=== PATIENT | male | born 1995 | race Caucasian/White ===

== ENCOUNTER 2018-06-10 01:13 | Emergency (ER) | payer OTHER ==
[2018-06-10 02:59] VITALS: BP 140/71
[2018-06-10] MEDS ORDERED: Sodium Chloride 0.9% 1,000 ML IV SCH (03:15)
--- NOTE | 2018-06-10 03:21 | EDM.PDOC ---
ED HPI GENERAL MEDICAL PROBLEM - General Chief Complaint: Upper Extremity Injury/Pain Stated Complaint: ARM PAIN Time Seen by Provider: 06/10/18 03:08 Source of Information: Reports: Patient History Limitations: Reports: No Limitations - History of Present Illness INITIAL COMMENTS - FREE TEXT/NARRATIVE: This is a 22-year-old male. He states that he awoke with pain in his right shoulder and his shoulder was dislocated. He states it dislocates fairly easily and he noted he had a deformity and it felt like it was dislocated so he comes to the ER. He says his dislocated it several times in the past. He does have an empty socket when I look at the right shoulder suggesting it is dislocated. We will get an x-ray and then it back into place after giving him some medications. Right Shoulder Pain Score (Numeric/FACES): 4 - Related Data Allergies Allergy/AdvReac Type Severity Reaction Status Date / Time No Known Allergies Allergy Verified 06/10/18 02:57 Home Meds: Home Meds . [No Known Home Meds] 06/10/18 [History] Past Medical History - Past Surgical History Musculoskeletal Surgical History: Reports: Shoulder Surgery Social & Family History - Tobacco Use Smoking Status *Q: Never Smoker - Caffeine Use Caffeine Use: Reports: None - Recreational Drug Use Recreational Drug Use: No Review of Systems - Review of Systems Review Of Systems: See Below Constitutional: Denies: Chills, Fever Eyes: Reports: No Symptoms Ears: Reports: No Symptoms Nose: Reports: No Symptoms Mouth/Throat: Reports: No Symptoms Respiratory: Reports: No Symptoms Cardiovascular: Reports: No Symptoms GI/Abdominal: Reports: No Symptoms Genitourinary: Reports: No Symptoms Musculoskeletal: Reports: Shoulder Pain Skin: Reports: No Symptoms Neurological: Reports: No Symptoms Psychiatric: Reports: No Symptoms ED EXAM, GENERAL - Physical Exam Exam: See Below Exam Limited By: No Limitations General Appearance: Alert, WD/WN, Mild Distress Eye Exam: Bilateral Eye: Normal Inspection Ears: Normal External Exam Nose: Normal Inspection Throat/Mouth: Normal Inspection, Normal Lips, Normal Voice, No Airway Compromise Head: Normocephalic Neck: Supple Respiratory/Chest: No Respiratory Distress, Lungs Clear Cardiovascular: Regular Rate, Rhythm, No Murmur GI/Abdominal: Soft Back Exam: Normal Inspection, Full Range of Motion Extremities: Other (The socket of the right shoulder is empty the humeral head appears to be inferior anterior.) Neurological: Alert, Oriented, Other (Sensation and movement of his hand wrist and fingers appears to be intact) Psychiatric: Normal Affect, Normal Mood Skin Exam: Warm, Dry ED TRAUMA EXTREMITY PROCEDURES - Joint Reduction Site: Shoulder (R) Sedation: Conscious Sedation Pre-Procedure NV Status: Normal Post-Procedure NV Status: Normal Technique: Traction/Counter Traction Number of Attempts: 1 Post-Reduction Imaging: Completely Reduced Joint Reduction Complications: No Course - Vital Signs Last Recorded V/S: Last Vital Signs Temp 97.2 F 06/10/18 02:55 Pulse 72 06/10/18 02:55 Resp 16 06/10/18 02:55 BP 140/71 06/10/18 02:55 Pulse Ox 97 06/10/18 02:55 - Orders/Labs/Meds Orders: Active Orders 24 hr Category Date Time Status Shoulder 1V Rt [CR] Stat Exams 06/10/18 03:47 Taken Shoulder Comp Rt [CR] Stat Exams 06/10/18 03:12 Taken Sodium Chloride 0.9% [Normal Saline] 1,000 ml Med 06/10/18 03:15 Active IV ASDIRECTED Medication Orders Sodium Chloride (Normal Saline) 1,000 mls @ 500 mls/hr IV ASDIRECTED THIAGO Last Admin: 06/10/18 03:20 Dose: 500 mls/hr Meds: Medications Generic Name Dose Route Start Last Admin Trade Name Freq PRN Reason Stop Dose Admin Sodium Chloride 1,000 mls @ 500 mls/hr 06/10/18 03:15 06/10/18 03:20 Normal Saline IV 500 mls/hr ASDIRECTED THIAGO Administration Discontinued Medications Generic Name Dose Route Start Last Admin Trade Name Freq PRN Reason Stop Dose Admin Etomidate Confirm 06/10/18 03:27 06/10/18 03:41 Amidate Administered 06/10/18 03:28 Not Given Dose 40 mg IVPUSH .STK-MED ONE Etomidate 20 mg 06/10/18 03:39 06/10/18 03:34 Amidate IVPUSH 06/10/18 03:40 20 mg ONETIME ONE Administration - Radiology Interpretation Free Text/Narrative:: Initial x-ray did not show any obvious acute fractures, and appears to be displaced anteriorly and inferior. - Re-Assessments/Exams Free Text/Narrative Re-Assessment/Exam: 06/10/18 03:37 The procedure consent was signed. The patient was placed on a monitoring engineer. Oxygen by nasal cannula was placed. He received 20 mg of etomidate IV through the normal saline IV. He promptly fell asleep. There was traction and countertraction and the shoulder reduced itself almost immediately. He'll be placed in a shoulder immobilizer and once he awakens we will repeat the x-rays. 06/10/18 04:17 Patient is doing fine. When he awoke we did a single view x-ray that suggests the stanton head is in the glenoid fossa now. When I examine the shoulder itself the fossa is full and he has range of motion of that shoulder gently. He says the shoulder feels 100% better. We'll put him in a sling and swath. I refer him to Dr. Okeefe who is career professional for orthopedics. Departure - Departure Time of Disposition: 04:18 Disposition: Home, Self-Care 01 Condition: Good Clinical Impression: Dislocation of right shoulder joint Qualifiers: Encounter type: initial encounter Qualified Code(s): S43.004A - Unspecified dislocation of right shoulder joint, initial encounter - Discharge Information *PRESCRIPTION DRUG MONITORING PROGRAM REVIEWED*: Not Applicable *COPY OF PRESCRIPTION DRUG MONITORING REPORT IN PATIENT DEMETRIUS: Not Applicable Instructions: Shoulder Dislocation Referrals: Rafael Okeefe MD [Physician] - Forms: ED Department Discharge Additional Instructions: Stay in the sling and swath for 2-3 days, then when you take it out do not reach overhead for another 7 days, follow-up with the database marketing specialist that career professional tonsabino Okeefe' by calling his office on Tuesday for an appointment, take Tylenol or ibuprofen as needed for the soreness, return to the ER if needed - My Orders Last 24 Hours: My Active Orders 06/10/18 03:12 Shoulder Comp Rt [CR] Stat 06/10/18 03:15 Sodium Chloride 0.9% [Normal Saline] 1,000 ml IV ASDIRECTED 06/10/18 03:47 Shoulder 1V Rt [CR] Stat - Assessment/Plan Last 24 Hours: My Active Orders 06/10/18 03:12 Shoulder Comp Rt [CR] Stat 06/10/18 03:15 Sodium Chloride 0.9% [Normal Saline] 1,000 ml IV ASDIRECTED 06/10/18 03:47 Shoulder 1V Rt [CR] Stat
[2018-06-10] MEDS ORDERED: Etomidate 2 MG/ML 20 ML SDV IVPUSH ONE ×2 (03:27→03:39)
--- NOTE | 2018-06-11 17:56 | CR ---
Right shoulder: Two views of the right shoulder were obtained. Comparison: Prior right shoulder x-ray of 08/24/14. Anterior subcoracoid dislocation is seen. No discrete fracture or other abnormality is identified. Impression: 1. Right shoulder dislocation. Diagnostic code #3
--- NOTE | 2018-06-11 17:56 | CR ---
Right shoulder: Single AP view of the right shoulder was obtained. Comparison: Prior right shoulder study performed earlier on the same day (3:18 AM). Previous dislocation has been reduced. No fracture or other bony abnormality is appreciated. Impression: 1. Previous dislocation has been reduced. Diagnostic code #1
== END 2018-06-10 04:25 | disposition home or self-care (01) ==
LOC: JD.ED 01:13
DX: S43.014A Anterior dislocation of right humerus, initial encounter (principal); X58.XXXA Exposure to other specified factors, initial encounter
CPT/HCPCS: 23650; 73020; 73030; 96361; 96374; 99152; 99283; J3490; J7040; 23655